=== PATIENT | male | born 1980 | race Caucasian/White ===

== ENCOUNTER 2016-07-03 16:20 | Emergency (ER) | payer MEDICAID ==
[2016-07-03 18:07] VITALS: BP 114/71
== END 2016-07-03 18:07 | disposition home or self-care (01) ==
LOC: ED 16:20
DX: S51.851A Open bite of right forearm, initial encounter (principal); R10.13 Epigastric pain; I10 Essential (primary) hypertension; W57.XXXA Bitten or stung by nonvenomous insect and other nonvenomous arthropods, initial encounter; Y93.89 Activity, other specified; Y92.89 Other specified places as the place of occurrence of the external cause; Y99.8 Other external cause status

== ENCOUNTER 2016-08-31 00:24 | Emergency (ER) | payer MEDICAID ==
[2016-08-31 01:50] VITALS: BP 140/93
== END 2016-08-31 01:50 | disposition home or self-care (01) ==
LOC: ED 00:24
DX: S10.11XA Abrasion of throat, initial encounter (principal); X58.XXXA Exposure to other specified factors, initial encounter; Y93.89 Activity, other specified; Y99.8 Other external cause status; Y92.89 Other specified places as the place of occurrence of the external cause

== ENCOUNTER 2016-12-15 03:23 | Emergency (ER) | payer MEDICAID ==
[2016-12-15 04:20] VITALS: BP 141/101
== END 2016-12-15 04:20 | disposition home or self-care (01) ==
LOC: ED 03:23
DX: I10 Essential (primary) hypertension (principal)

== ENCOUNTER 2017-06-03 01:51 | Emergency (ER) | payer MEDICAID ==
[~2017-06-03] VITALS: Ht 172.7 cm; Wt 82.5 kg
[2017-06-03 02:00] VITALS: Ht 172.7 cm; Wt 82.5 kg
[2017-06-03 03:32] LABS: BASOPHIL % 0.2 % (0-2); PLATELET COUNT 156 x10^3mcL (130-400); RED CELL DISTRIBUTION WIDTH 12.5 % (11.5-14.5)
[2017-06-03 03:47] LABS: CALCIUM 8.9 mg/dL (8.5-10.1); CARBON DIOXIDE 25.7 mmol/L (21-32); CHLORIDE SERUM 106 mmol/L (98-107); CREATININE SERUM 0.9 mg/dL (0.7-1.3); GFR1 > 60 mL/min; GLUCOSE SERUM 132 mg/dL (74-106); POTASSIUM SERUM 3.2 mmol/L (3.5-5.1); SODIUM SERUM 136 mmol/L (136-145)
[2017-06-03 03:51] LABS: ALBUMIN 3.8 g/dL (3.4-5.0); ALKALINE PHOSPHATASE 70 U/L (46-116); ALT/SGPT 61 U/L (16-63); AST/SGOT 35 U/L (15-37); BILIRUBIN TOTAL 0.43 mg/dL (0.20-1.00); TOTAL PROTEIN, SERUM 7.1 g/dL (6.4-8.2)
[2017-06-03 06:08] VITALS: BP 132/79
== END 2017-06-03 06:44 | disposition home or self-care (01) ==
LOC: ED 01:51
PROVIDERS: Emergency Medicine
DX: R10.84 Generalized abdominal pain (principal); R19.7 Diarrhea, unspecified; R50.9 Fever, unspecified; I10 Essential (primary) hypertension
CPT/HCPCS: 87804; J1885; J2405; J7030

== ENCOUNTER 2018-12-01 02:56 | Emergency (ER) | payer MEDICAID ==
[~2018-12-01] VITALS: Ht 172.7 cm; Wt 71.7 kg
[2018-12-01 04:35] VITALS: BP 116/82
== END 2018-12-01 04:35 | disposition home or self-care (01) ==
LOC: ED 02:56
DX: S90.812A Abrasion, left foot, initial encounter (principal); I10 Essential (primary) hypertension; W22.8XXA Striking against or struck by other objects, initial encounter; Y93.89 Activity, other specified; Y92.89 Other specified places as the place of occurrence of the external cause; Y99.8 Other external cause status
CPT/HCPCS: 90715

== ENCOUNTER 2019-02-07 13:29 | Emergency (ER) | payer MEDICAID ==
[~2019-02-07] VITALS: Ht 172.7 cm; Wt 82.1 kg
[2019-02-07 13:37] VITALS: BP 127/85; Ht 172.7 cm; Wt 82.1 kg
== END 2019-02-07 16:31 | disposition left against medical advice (07) ==
LOC: ED 13:29
DX: Z53.21 Procedure and treatment not carried out due to patient leaving prior to being seen by health care provider (principal)